=== PATIENT | female | born 1990 | race African-American/Black ===

== ENCOUNTER 2019-06-01 00:23 | Emergency (ER) | payer SELFPAY ==
[~2019-06-01] VITALS: Ht 170.2 cm; Wt 96.2 kg
[2019-06-01 02:34] VITALS: BP 155/98
[2019-06-01] MEDS ORDERED: hydrOXYzine 25 MG TAB or CAP PO ONE (03:00)
== END 2019-06-01 07:09 | disposition home or self-care (01) ==
LOC: ER 00:27
DX: F41.9 Anxiety disorder, unspecified (principal); K21.9 Gastro-esophageal reflux disease without esophagitis; R19.7 Diarrhea, unspecified; F17.210 Nicotine dependence, cigarettes, uncomplicated; Z76.0 Encounter for issue of repeat prescription

== ENCOUNTER 2019-06-12 14:24 | Emergency (ER) | payer OTHER ==
[~2019-06-12] VITALS: Ht 170.2 cm; Wt 96.2 kg
[2019-06-12 14:54] VITALS: BP 151/89
== END 2019-06-12 16:32 | disposition home or self-care (01) ==
LOC: ER 14:37
DX: F41.1 Generalized anxiety disorder (principal); F17.210 Nicotine dependence, cigarettes, uncomplicated; K21.9 Gastro-esophageal reflux disease without esophagitis

== ENCOUNTER 2019-06-14 17:20 | Emergency (ER) | payer SELFPAY ==
[~2019-06-14] VITALS: Ht 157.5 cm; Wt 96.2 kg
[2019-06-14 17:31] VITALS: BP 149/97
== END 2019-06-14 21:41 | disposition home or self-care (01) ==
LOC: ER 17:20
DX: T70.0XXA Otitic barotrauma, initial encounter (principal); J06.9 Acute upper respiratory infection, unspecified; H65.93 Unspecified nonsuppurative otitis media, bilateral; Z88.1 Allergy status to other antibiotic agents; Z88.8 Allergy status to other drugs, medicaments and biological substances; X58.XXXA Exposure to other specified factors, initial encounter

== ENCOUNTER 2019-06-20 07:34 | Emergency (ER) | payer SELFPAY ==
[~2019-06-20] VITALS: Ht 170.2 cm; Wt 90.7 kg
[2019-06-20 08:06] VITALS: BP 120/63
== END 2019-06-20 08:41 | disposition home or self-care (01) ==
LOC: ER 07:37
DX: H60.91 Unspecified otitis externa, right ear (principal); K21.9 Gastro-esophageal reflux disease without esophagitis; Z88.1 Allergy status to other antibiotic agents; Z88.8 Allergy status to other drugs, medicaments and biological substances

== ENCOUNTER 2019-06-29 02:40 | Emergency (ER) | payer SELFPAY ==
[~2019-06-29] VITALS: Ht 170.2 cm; Wt 90.7 kg
[2019-06-29 03:04] VITALS: BP 144/96
[2019-06-29] MEDS ORDERED: BACLOFEN 10 MG TAB PO ONE (05:00)
[2019-06-29] MEDS ORDERED: ACETAMINOPHEN/CODEINE#3 (300/30mg) TAB PO ONE (05:00)
[2019-06-29] MEDS ORDERED: DexAMETHasone SOD PHOS 10MG/1ML VIAL INJ IM ONE (05:00)
== END 2019-06-29 05:37 | disposition home or self-care (01) ==
LOC: ER 02:45
DX: M62.838 Other muscle spasm (principal); K21.9 Gastro-esophageal reflux disease without esophagitis; F17.210 Nicotine dependence, cigarettes, uncomplicated; Z88.1 Allergy status to other antibiotic agents
CPT/HCPCS: 72040; 96372; 99283; J1100